=== PATIENT | male | born 2000 | race Caucasian/White ===

== ENCOUNTER 2024-12-02 00:42 | Emergency (ER) | payer OTHER, SELFPAY ==
[2024-12-02 00:44] VITALS: BP 138/96
--- NOTE | 2024-12-02 00:55 | ED.GENMED ---
History of Present Illness
General
Chief Complaint: Abdominal Pain
Source: patient
Exam Limitations: none
Time Seen by Provider: 12/02/24 00:54
Nursing documentation reviewed up to this point in time: agreed with
History of Present Illness
History of Present Illness:
24-year-old male with past medical history of asthma, Tourette's syndrome, anxiety, presents to the ER today with concerns of abdominal pain and bloody stools. He reports that this started after eating dinner last night. Symptom started around 10
PM. He felt the urge to defecate when he went to the bathroom, passed some clots. Then he started to have pain on the left side of his abdomen. He had 1 episode of vomiting. He tried taking Benadryl and Pepcid without relief. He does mention
that he has extensive allergies to egg, fish, tree nuts, in which he gets rash and gets itchy. He is not recall eating any of these allergens. Of note, patient has had rectal bleeding around once a week for the past few months or so and did have
an appointment scheduled with a chemical processing equipment repairer but that appointment is not until February. The patient denies any recent travel outside the country. He denies any recent sick contacts. He denies any recent antibiotics. He has no history of
intra-abdominal surgery. He denies flank pain. He denies any urinary symptoms. His grandmother does have a history of inflammatory bowel disease.
Past History
Social History
Tobacco: Non-smoker
Drug: None
Review of Systems
Review of Systems
All Other Systems: ROS reviewed and negative except as documented in HPI and ROS
Phy Exam
Physical Exam
Physical Exam:
General: Patient is well appearing and in no acute distress; non-toxic
Skin: Warm and dry, no rashes or lesions
Head: Normocephalic, atraumatic
Eyes: Sclera non-icteric. EOMs intact.
Cardiac: Regular rate and rhythm, no murmurs
Peripheral Vascular: No lower extremity swelling or edema
Pulm: Normal respiratory effort, no wheezes, rales, rhonchi
Abdomen: Mild left sided abdominal tenderness to palpation, no rebound tenderness, no guarding
Genitourinary: Mucoid stool with blood clot
Neuro: CN II-XII intact, no focal neurologic deficits.
Psychiatric: Appropriate mood and affect.
Course
Orders/Labs/Results
Orders:
Orders
12/02/24 00:56
IV Insert/Care/Rem.- Treatment PRN
12/02/24 01:11
Basic Metabolic Panel Urgent
Complete Blood Count/With Diff Urgent
Lipase Urgent
12/02/24 01:19
0.9% Sodium Chloride 1000 ml [Nss] 1,000 ml IV BOLUS
Ondansetron Injectable [Zofran] 4 mg IV NOW STA
Pantoprazole [Protonix IV] 40 mg IV NOW STA
12/02/24 01:23
CT Abd/pelvis W Iv Cont Urgent
Comment:
Reason For Exam: left sided ab pain, bloody stools
12/02/24 02:12
Type+Screen Urgent
BBK Wristband Number:
LFT [[id number]] Urgent
Potassium Urgent
Comment: ADD ON
12/02/24 02:22
Urinalysis Reflex To Culture Urgent
Date Specimen was Collected: 12/02/24
Time Specimen was Collected: 02:11
Stool Culture Urgent
DANIEL Source: Feces/Stool
Specimen Description:
Date Specimen was Collected: 12/02/24
Time Specimen was Collected: 02:11
12/02/24 02:59
Add On- LAB Urgent
Tests Added?: potassium
12/02/24 03:29
Acetaminophen [Tylenol] 1,000 mg PO NOW STA
Dicyclomine [Bentyl] 20 mg PO NOW STA
12/02/24 04:49
Morphine Sulfate 2 mg IV NOW STA
12/02/24 05:26
Dicyclomine [Bentyl] 20 mg PO NOW STA
Abnormal Lab Results
12/02/24 12/02/24
01:11 02:12
WBC 15.5 H 10^3/uL
(4.8-10.8)
Plt Count 435 H 10^3/uL
(130-400)
Abs Immat Gran (auto) 0.1 H 10^3/uL
(0-0.05)
Absolute Neuts (auto) 11.1 H 10^3/uL
(1.4-6.5)
Absolute Monos (auto) 1.0 H 10^3/uL
(0.1-0.6)
Direct Bilirubin 0.5 H mg/dl
(0.0-0.4)
12/02/24 01:11
12/02/24 02:12
Vital Signs
Initial and Last Documented VS:
Initial Vital Signs
Temp Pulse Resp BP Pulse Ox
98.1 F 68 20 138/96 98
12/02/24 00:44 12/02/24 00:44 12/02/24 00:44 12/02/24 00:44 12/02/24 00:44
Last Documented Vital Signs
Temp Pulse Resp BP Pulse Ox
98.1 F 71 20 125/61 97
12/02/24 00:44 12/02/24 04:45 12/02/24 04:45 12/02/24 04:45 12/02/24 04:45
MDM/Problems Addressed
Differential Diagnosis Includes:
ddx include IBD, infectious colitis, IBS, diverticulitis, angiodysplasia, gastroenteritis
MDM/Problems Addressed:
24 y/o male past medical history of asthma, Tourette's syndrome, anxiety, presents to the ER today with concerns of abdominal pain and bloody stools. He reports that this started after eating dinner last night. Symptom started around 10 PM. He
felt the urge to defecate when he went to the bathroom, passed some clots. He does have a family history of inflammatory bowel disease. He has no fever. On physical exam he is well-appearing no acute distress. Did have improvement of his pain
with Bentyl and Tylenol however pain reoccurred, did trial dose of morphine which did help. He does have a white blood cell count of 15. CT scan shows findings concerning for colitis. Discussed with my attending. Will initiate cipro and flagyl. No
indication for hospital mission at this time. Hemoglobin normal. Patient feels well. Information sent to GI front end loader operator for sooner outpatient follow-up. Strict return precuations discussed. Patient stable for discharge.
Chronic conditions affecting care: Asthma and Psychiatric illness
*Pulse Oximetry
SaO2: 98
Oxygen Mode of Delivery: Room air
Patient hypoxic: no
*Critical Care Note
Total Time (30-74mins, 75-104mins- exclusive of procedures): Not Applicable
Update Note
Update Note:
Update, patient reports that his pain is getting worse, will trial Bentyl and Tylenol
Patient is requesting additional pain medication before he leaves. I do want to avoid NSAIDs with active bleeding. The Bentyl did help patient but he is concerned that he will get an episode of pain again before the pharmacy opens up. Will give
small dose of morphine. I did offer admission for pain control and extended ER stay however patient does want to go home
ED Attending Note
-
Portions of this chart may have been created with voice recognition software.� Occasional wrong word or��sound alike� substitutions may have occurred due to the inherent limitations of voice recognition software.
Discharge Plan
Departure
Patient Disposition: Home (Routine Discharge)
Date of Disposition: 12/02/24
Time of Disposition: 04:36
Patient with high blood pressure during this ER visit?: Yes
Condition: Good
Discharge Problem:
Colitis, Hematochezia
Instructions: Colitis, GI bleed (DC), BLOOD PRESSURE
Prescriptions:
New
dicyclomine 20 mg tablet
20 mg PO QID PRN (Reason: abdominal pain) Qty: 16 0RF
ciprofloxacin HCl 500 mg tablet
500 mg PO BID 7 Days Qty: 14 0RF
metronidazole 500 mg tablet
500 mg PO BID 7 Days Qty: 14 0RF
No Action
guanfacine [Tenex] 1 MG tablet
2 mg PO QPM
albuterol sulfate 90 MCG/PUFF HFA aerosol inhaler
2 puff inhalation BID PRN (Reason: asthma)
epinephrine [EpiPen] 0.3 MG/0.3/SYRINGE auto-injector
0.3 mg IM ONCE PRN (Reason: allergic rxn) Qty: 1 0RF
fluoxetine 10 MG capsule
40 mg PO DAILY
lorazepam 0.5 MG tablet
0.5 mg PO BIDPRN PRN (Reason: anxiety)
Referrals:
Jennifer Wright MD [Active, Gastroenterology] - Call in 1-3 days for appt
UNKNOWN - PT DOES,NOT KNOW [Family Provider]
Activity Restrictions/Additional Instructions:
You can take Tylenol and Bentyl as needed for abdominal pain. For the Bentyl, you can take 1 dose up to 4 times daily.
Ciprofloxacin and metronidazole have been sent to your pharmacy. Please follow dosing instructions and take for 7 days.
Your information has been sent to the GI front end loader operator. You should receive a call within the next 48 hours to schedule sooner follow-up appointment.
PLEASE RETURN TO THE ER IMMEDIATELY SHOULD YOU DEVELOP A FEVER, ANY ACUTE WORSENING OF YOUR PAIN OR BLEEDING, LIGHTHEADEDNESS, DIZZINESS, LOSS OF CONSCIOUSNESS, OR ANY OTHERS SIGNS OR SYMPTOMS WORRISOME TO YOU.
Interventions
Interventions:
*Risk Screen - Suicide Last Done: 12/02/24 00:44
*General Assessment Last Done: 12/02/24 01:30
*Neglect/Abuse Screening Last Done: 12/02/24 01:30
*ED- Fall Risk Assessment Last Done: 12/02/24 01:30
*Nursing Disposition Last Done: 12/02/24 05:35
FY-Fcgcsu-Kzpknysywt Assessment Last Done: 12/02/24 01:19
Discharge Date and Time
Discharge Date/Time: 12/02/24 05:36
Print Language: [id number]
[2024-12-02] MEDS: NSS 1000 IV (01:24)
[2024-12-02] MEDS: PROTONIX IV 40 MG IV (01:25)
[2024-12-02] MEDS: ZOFRAN 4 MG IV (01:25)
[2024-12-02 01:30] LABS: Hematocrit 42.7 % (39.0-52.0); Hemoglobin 15.6 g/dL (13.0-18.0); Mean Corp Hgb Conc. 36.5 g/dL (33.0-37.0); Mean Corpuscular Volume 81.0 fL (80.0-94.0); Nucleated Red Blood Cells % 0 % (-); Platelet Count 435 10^3/uL (130-400); Red Cell Dist. Width 12.5 % (11.5-14.5)
[2024-12-02 01:56] LABS: Blood Urea Nitrogen 16 mg/dl (9-20); Calcium 9.9 mg/dl (8.4-10.2); Carbon Dioxide 23 mmol/L (22-30); Chloride 107 mmol/L (98-107); Glucose 90 mg/dl (70-99); Sodium 142 mmol/L (135-145); eGFR > 60.00
[2024-12-02 01:58] LABS: Lipase 36 U/L (23-300)
[2024-12-02 02:40] LABS: Urine Character Clear (Clear)
[2024-12-02 02:48] LABS: ALT (SGPT) 29 U/L (0-50); AST (SGOT) 32 U/L (17-59); Albumin 4.3 g/dl (3.5-5.0); Alkaline Phosphatase 66 U/L (38-126); Total Protein 7.5 g/dl (6.3-8.2)
[2024-12-02 03:11] LABS: Potassium 4.7 mmol/L (3.5-5.1)
[2024-12-02] MEDS: TYLENOL 1000 MG PO (03:35)
[2024-12-02] MEDS: BENTYL 20 MG PO ×2 (03:35→05:30)
[2024-12-02 04:45] VITALS: BP 125/61
[2024-12-02] MEDS: MORPHINE SULFATE 2 MG IV (04:54)
== END 2024-12-02 05:36 | disposition home or self-care (01) ==
LOC: EMR 00:42
PROVIDERS: Physician Assistant; EMERGENCY PHYSICIAN Student in an Organized Health Care Education/Training Program
DX: K52.9 Noninfective gastroenteritis and colitis, unspecified (principal); K92.1 Melena; J45.909 Unspecified asthma, uncomplicated; Z91.012 Allergy to eggs; Z91.013 Allergy to seafood; Z91.018 Allergy to other foods
CPT/HCPCS: 96374; 96375; 96361; 99284; 74177; 80048; 80076; 81003; 83690; 84132; 85025; 86850; 86900; 86901; 87045; 87046; 87427; Q9967

== ENCOUNTER 2024-12-30 06:16 | Day surgery (SDC) | payer OTHER, SELFPAY | END 2024-12-30 13:21 | disposition home or self-care (01) | LOC: GI 06:16 | PROVIDERS: ATTENDING PHYSICIAN Internal Medicine Gastroenterology | DX: K62.5 Hemorrhage of anus and rectum (principal); K64.8 Other hemorrhoids; K62.89 Other specified diseases of anus and rectum | CPT/HCPCS: 45380; 88305 ==